=== PATIENT | female | born 1940 | race Caucasian/White ===

== ENCOUNTER 2025-04-07 11:00 | Outpatient (CLI) | payer OTHER | END 2025-04-07 11:01 | disposition home or self-care (01) | LOC: PET 11:00 | PROVIDERS: ATTEND Internal Medicine Hematology & Oncology | DX: C4A.9 Merkel cell carcinoma, unspecified (principal); R91.1 Solitary pulmonary nodule | CPT/HCPCS: 78816; A9552 ==